=== PATIENT | male | born 1950 | race Caucasian/White ===

== ENCOUNTER 2019-07-08 14:36 | Emergency (ER) | payer MEDICARE, OTHER, SELFPAY ==
[2019-07-08 14:55] VITALS: BP 199/114; PULSE 101; RESP 18; TEMP 36.4; O2SAT 97; BMI 25.7
--- NOTE | 2019-07-08 15:17 | W.ED.WOUNDLC ---
HPI - Wound/Laceration General: Chief Complaint: Wound/Laceration Stated Complaint: finger lac Time Seen by Provider: 07/08/19 15:17 Source: patient Mode of arrival: ambulatory Limitations: no limitations History of Present Illness: HPI narrative: cut L index finger with a wood lathe Onset (ago): hour(s) Extremity Location: Left: hand Place: home Patient tetanus UTD: No Context: accidental Review of Systems Skin/Breast: Reports: other (laceration to L index finger ) Neuro: Denies: numbness in extremities, weakness in extremities or changes in sensation PFSH ED PFSH: Social History Smoking and tobacco status: current every day smoker Physical Exam Const: COMMON NORMALS: no apparent distress, average body habitus, no limitations, healthy appearing, alert and well nourished Extremity: OTHER: 4cm laceration to distal phalanx portion of L index finger wrapping around; does not appear deep; no tendon involvement; full ROM Neuro: SENSORIUM/ORIENTATION: Yes alert Procedures Laceration Laceration 1: Site: hand (index finger) Side (If applicable): left Size (cm): 4.0 Description: linear Depth: simple, single layer Local Anesthetic: lidocaine 1% Amount of anesthesia used (mL): 1.5 Pre-repair: wound explored and irrigated extensively Skin layer closed with: nylon Size (cm): 5-0 Number of sutures: 12 Technique: simple, interrupted Course Vital Signs: Vital signs: Vital Signs Temperature 98.0 F 07/08/19 17:20 Pulse Rate 98 07/08/19 17:20 Respiratory Rate 16 07/08/19 17:20 Blood Pressure 187/101 07/08/19 17:20 Pulse Oximetry 94 07/08/19 17:20 Discharge Plan Discharge Patient Disposition: Home, Self-Care Clinical Impression: Laceration Condition: Stable Prescriptions: New Keflex 500 mg capsule 500 mg PO Q6H 7 Days Qty: 28 RF: 0 Discharge Orders: Discharge Order (Routine); Ordered 07/08/19 Ordered By: Iraida Rae Patient Instructions: Laceration, Finger Laceration (ED) Activity Restrictions/Additional Instructions: Begin antibiotics today. Keep laceration clean with warm soapy water several times daily. Keep laceration dressed if doing anything where it potentially could get dirty otherwise leave open to air. Sutures need to come out in 1 week. Monitor for signs of infection such as redness, swelling, drainage. Discharge Date/Time: 07/08/19 17:38 Coding Level of Care Code ED Circ[employer] Performer for Francesca Higgins
[2019-07-08 15:22] VITALS: BP 179/96; PULSE 91; RESP 16; TEMP 36.8; O2SAT 96
[2019-07-08] MEDS: lidocaine 2% INJ 20 mL INJECTION (16:00)
[2019-07-08] MEDS: tetanus-diphtheria tox (adult) 0.5 mL SDV IM (16:45)
[2019-07-08 17:20] VITALS: BP 187/101; PULSE 98; RESP 16; TEMP 36.7; O2SAT 94
== END 2019-07-08 17:38 | disposition home or self-care (01) ==
PROVIDERS: Emergency Provider Physician Assistant
DX: S61.211A Laceration without foreign body of left index finger without damage to nail, initial encounter (principal); F17.200 Nicotine dependence, unspecified, uncomplicated; W31.1XXA Contact with metalworking machines, initial encounter
CPT/HCPCS: 12002; 90471; 90714; 99281; 99283; J2001

== ENCOUNTER → 2023-05-03 09:54 | Outpatient (BNVA) | payer MEDICARE, SELFPAY | PROVIDERS: PCP Family Medicine; Visit Provider Podiatrist Foot & Ankle Surgery | DX: B35.1 Tinea unguium (principal) | CPT/HCPCS: 99203 ==